=== PATIENT | female | born 1965 | race Caucasian/White ===

== ENCOUNTER 2018-06-02 22:30 | Emergency (ER) | payer OTHER ==
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
[2018-06-02 22:45] VITALS: BP 129/86; PULSE 74; TEMP 98.7; BMI 30.9
[2018-06-02] MEDS ORDERED: SILVER SULFADIAZINE 1% TOP CREAM 50 GM JAR TP ONE (22:46)
== END 2018-06-02 22:51 | disposition home or self-care (01) ==
LOC: FER 22:30
PROC: 2W2FX4Z Dressing of Left Hand using Bandage (ICD-10-PCS; principal; 2018-06-02)
DX: T23.162A Burn of first degree of back of left hand, initial encounter (principal); T31.0 Burns involving less than 10% of body surface
CPT/HCPCS: 99282-25